=== PATIENT | female | born 1945 | race Native Hawaiian/Other Pacific Islander ===

== ENCOUNTER 2021-11-07 19:37 | Emergency (ER) | payer OTHER ==
[~2021-11-07] VITALS: Ht 157.5 cm; Wt 78.9 kg
[2021-11-07 19:37] VITALS: BP 196/89; TEMP 98.3
[2021-11-07 20:01] LABS: PLATELET COUNT 178 K/uL (152-353)
[2021-11-07 20:02] LABS: POTASSIUM 4.5 mmol/L (3.6-5.2)
[2021-11-08] MEDS ORDERED: TYLENOL325 MG PO (08:35)
[2021-11-08] MEDS ORDERED: CLON0.1T16 PO (08:37)
[2021-11-08] MEDS ORDERED: ESCITALOPRAM5 MG PO (08:37)
[2021-11-08] MEDS ORDERED: [UNRECOGNIZED DRUG - CODE] PO (08:38)
[2021-11-08] MEDS ORDERED: FOLI1TAB26 PO (08:39)
[2021-11-08] MEDS ORDERED: PRESERVISION AREDS PO (08:39)
[2021-11-08] MEDS ORDERED: ALLERGY NA50 MCG/ACT INH (08:41)
[2021-11-08] MEDS ORDERED: MEMANTINE HYDRO10 MG PO (08:42)
[2021-11-08] MEDS ORDERED: POT CHLORIDE10 MEQ PO (08:43)
[2021-11-08] MEDS ORDERED: ACID CONTROL20 MG PO (08:43)
[2021-11-08] MEDS ORDERED: OYSTER SHELL C500 M3 PO (08:44)
[2021-11-08] MEDS ORDERED: DONEPEZIL HYDRO10 MG PO (08:45)
[2021-11-08] MEDS ORDERED: ROPINIROLE0.25 MG PO (08:45)
[2021-11-08] MEDS ORDERED: QUETIAPINE50 MG PO (08:46)
[2021-11-08] MEDS ORDERED: MELATONIN3 M1 PO (08:47)
[2021-11-08] MEDS ORDERED: GABA300C2 PO (08:48)
[2021-11-08] MEDS ORDERED: SYSTAN1 OPTH (08:48)
[2021-11-08] MEDS ORDERED: PRAVACHOL PO (08:49)
[2021-11-08] MEDS ORDERED: PRO-STAT PO (08:52)
[2021-11-08] MEDS ORDERED: ALLER-TEC10 MG PO (08:53)
== END 2021-11-07 20:54 | disposition still patient (30) ==
LOC: ED 19:37
PROVIDERS: Hospitalist
DX: R46.89 Other symptoms and signs involving appearance and behavior (principal); R45.850 Homicidal ideations; F32.89 Other specified depressive episodes; Z11.52 Encounter for screening for COVID-19; Z04.6 Encounter for general psychiatric examination, requested by authority
CPT/HCPCS: 80053; 81000; 85027; 87086; 87088; 87635; 93005; 96372; 99283; J0696; U0003